=== PATIENT | male | born 1950 | race Caucasian/White ===

== ENCOUNTER → 2024-08-19 13:20 | Outpatient (REF) | payer MEDICARE, OTHER, SELFPAY | LOC: PAVMRI 13:20 | PROVIDERS: ATTENDING PHYSICIAN Physician Assistant; FAMILY PHYSICIAN Internal Medicine | DX: H90.A22 Sensorineural hearing loss, unilateral, left ear, with restricted hearing on the contralateral side (principal) | CPT/HCPCS: 70553; A9575 ==